=== PATIENT | female | born 1960 | race African-American/Black ===

== ENCOUNTER 2020-10-24 21:26 | Emergency (ER) | payer MEDICAID ==
[~2020-10-24] VITALS: Ht 165.1 cm; Wt 68.0 kg
[~2020-10-24 21:26] MED LIST: DIAZ10TA4; HYDR-3162; HYDR25TA; PVCXPC
[2020-10-25 01:24] LABS: CHLORIDE 111 mEq/L (98-107)
[2020-10-25 01:25] LABS: EOSINOPHILS % 0.8 % (0.0-5.0); HEMATOCRIT. 39.3 % (36.0-48.0); HEMOGLOBIN. 13.4 g/dL (12.0-16.0); LYMPHOCYTES % 25.3 % (20.0-50.0); MEAN CORPUSCULAR HEMOGLOBIN 31.2 pg (28.0-32.0); MEAN CORPUSCULAR VOLUME 91.5 fL (81.0-99.0); MEAN PLATELET VOLUME 8.3 fl (7.4-10.4); MONOCYTES % 6.5 % (2.0-8.0); NEUTROPHILS % 66.4 % (40.0-76.0); PLATELET 343 x1000/uL (130-400); RED CELL DISTRIBUTION WIDTH 14.5 % (11.6-14.6)
[2020-10-25 01:28] LABS: ETHANOL BLOOD < 10 mg/dL
[2020-10-25] MEDS: ONDANSETRON HCL 4MG/2ML INJ IV STA (01:57)
[2020-10-25] MEDS: MORPHINE SULFATE 4 MG/ML CPJ (NOT FOR IM USE) IV STA (01:57)
[2020-10-25] MEDS: SODIUM CHLORIDE 0.9% 1,000 ML IV ONE (01:58)
[2020-10-25 01:59] LABS: INR 1.1; PROTHROMBIN TIME 11.4 sec (9.6-11.0)
[2020-10-25] MEDS ORDERED: IOHEXOL-300 100 ML BOTTLE ONE (02:35)
[2020-10-25 04:11] LABS: *AMPHETAMINES SCREEN URINE NEGATIVE (NEGATIVE); *BARBITURATES SCREEN URINE NEGATIVE (NEGATIVE); *BENZODIAZEPINES SCREEN URINE NEGATIVE (NEGATIVE); *COCAINE SCREEN URINE PRESUMTIVE POSITIVE (NEGATIVE)
[2020-10-25 04:12] LABS: CANNABINOID URINE SCREEN PRESUMTIVE POSITIVE (NEGATIVE); METHADONE URINE SCREEN NEGATIVE (NEGATIVE); OPIATES URINE SCREEN NEGATIVE (NEGATIVE); PHENCYCLIDINE URINE SCREEN NEGATIVE (NEGATIVE)
[2020-10-25 04:13] LABS: CLARITY URINE CLEAR (CLEAR); COLOR URINE YELLOW (YELLOW); KETONES URINE NEGATIVE (NEGATIVE); LEUKOCYTE ESTERASE URINE NEGATIVE (NEGATIVE); NITRITE URINE NEGATIVE (NEGATIVE); OCCULT BLOOD URINE NEGATIVE (NEGATIVE); PROTEIN URINE NEGATIVE (NEGATIVE); UROBILINOGEN URINE 0.2 E.U./dL (0.2-1.0)
[2020-10-25 05:15] VITALS: BP 142/81
== END 2020-10-25 05:23 | disposition home or self-care (01) ==
LOC: ER 21:26
DX: F10.129 Alcohol abuse with intoxication, unspecified (principal); E86.1 Hypovolemia; E87.2 Acidosis; Z79.899 Other long term (current) drug therapy; Y90.9 Presence of alcohol in blood, level not specified
CPT/HCPCS: 36415; 74177; 80053; 80305; 80320; 81003; 83605; 83690; 85025; 85610; 86850; 86900; 86901; 93005; 96361; 96374; 96375; 99285; J2270; J2405; J7030; Q9967; G0480